=== PATIENT | female | born 1975 | race African-American/Black ===

== ENCOUNTER 2024-11-25 16:35 | Inpatient (IN) | payer BC ==
[2024-11-25 19:04] LABS: BASO % 0.7 % (0-2.0); EOS % 0.7 % (0-4.5); HEMATOCRIT 29.8 % (32.4-45.2); HEMOGLOBIN 9.7 GM/dL (10.7-15.3); LYMPH % 12.5 % (8-40); MCH 23.4 pg (25.7-33.7); MCHC 32.5 g/dl (32.0-36.0); MEAN CELL VOLUME 72.3 fl (80-96); MEAN PLT VOLUME 8.6 fl (7.5-11.1); MONO % 4.8 % (3.8-10.2); NEUT % 81.3 % (42.8-82.8); PLATELET COUNT 308 10^3/uL (134-434); RBC 4.13 M/mm3 (3.60-5.2); RDW 31.5 % (11.6-15.6); WHITE BLOOD COUNT 9.2 K/mm3 (4.0-10.0)
[2024-11-25 19:10] LABS: INR 1.05 (0.83-1.09); PROTHROMBIN TIME (PATIENT) 11.5 SEC (9.7-13.0)
[2024-11-25 19:25] LABS: POTASSIUM 3.8 mmol/L (3.5-5.1)
[2024-11-25 19:28] LABS: ALBUMIN 3.6 g/dl (3.4-5.0); BLOOD UREA NITROGEN 10.4 mg/dL (7-18); CALCIUM 9.3 mg/dL (8.5-10.1)
[2024-11-25 19:31] LABS: CREATININE 0.9 mg/dL (0.55-1.3)
[2024-11-25 19:33] LABS: BILIRUBIN,TOTAL 0.4 mg/dL (0.2-1); TOT PROT 7.6 g/dl (6.4-8.2)
[2024-11-26 00:09] VITALS: BMI 27.3
[2024-11-26] MEDS: ELECTROLYTE-148 SOLN 1,000 ML IV SCH (00:10)
[2024-11-26] MEDS ORDERED: LIDOCAINE HCL/PF 2% SDV 5ML VIAL ONE (08:52)
[2024-11-26] MEDS ORDERED: PROPOFOL 20 ML ONE (08:53)
[2024-11-26] MEDS ORDERED: MIDAZOLAM HCL 2 MG/2 ML SINGLE DOSE VIAL ONE (08:53)
[2024-11-26] MEDS ORDERED: SUCCINYLCHOLINE CHLORIDE 200 MG/10 ML SYRINGE ONE (08:53)
[2024-11-26] MEDS ORDERED: ROCURONIUM BROMIDE 50 MG/5 ML SYRINGE ONE (08:53)
[2024-11-26] MEDS: ceFAZolin SODIUM 1 GM VIAL IVPB ONE ×2 (09:19)
[2024-11-26] MEDS ORDERED: DEXAMETHASONE SOD PHOSPHATE 4 MG/1 ML VIAL ONE (09:33)
[2024-11-26] MEDS ORDERED: ceFAZolin SODIUM 1 GM VIAL ONE (09:33)
[2024-11-26] MEDS ORDERED: PROMETHAZINE HCL 25 MG/1 ML VIAL IVPB PRN ×2 (09:56→13:00)
[2024-11-26] MEDS ORDERED: ONDANSETRON 4 MG/2 ML VIAL IVPUSH PRN (09:56)
[2024-11-26] MEDS ORDERED: LACTATED RINGERS SOLUTION 1,000 ML IV SCH (10:00)
[2024-11-26] MEDS ORDERED: ONDANSETRON 4 MG/2 ML VIAL ONE (10:39)
[2024-11-26] MEDS ORDERED: KETOROLAC TROMETHAMINE 30 MG/1 ML VIAL ONE (10:39)
[2024-11-26] MEDS ORDERED: GLYCOPYRROLATE 0.2 MG/1 ML VIAL ONE (11:01)
[2024-11-26] MEDS ORDERED: NEOSTIGMINE METHYLSULFATE 0.5 MG/1 ML - 10 ML MDV ONE (11:01)
[2024-11-26] MEDS ORDERED: ACETAMINOPHEN INJECTION 100 ML ONE (11:29)
[2024-11-26] MEDS: ACETAMINOPHEN 1000 MG/100 ML BAG IVPB ONE (11:34)
[2024-11-26 12:32] LABS: HEMATOCRIT 29.5 % (32.4-45.2); HEMOGLOBIN 9.2 GM/dL (10.7-15.3); MCH 23.1 pg (25.7-33.7); MCHC 31.2 g/dl (32.0-36.0); MEAN CELL VOLUME 73.9 fl (80-96); MEAN PLT VOLUME 8.1 fl (7.5-11.1); PLATELET COUNT 248 10^3/uL (134-434); RBC 3.99 M/mm3 (3.60-5.2); RDW 29.1 % (11.6-15.6); WHITE BLOOD COUNT 14.7 K/mm3 (4.0-10.0)
[2024-11-26] MEDS ORDERED: BISACODYL 5 MG TABLET.DR (FP) PO PRN (12:59)
[2024-11-26] MEDS ORDERED: SIMETHICONE 80 MG TAB.CHEW (FP) PO PRN (12:59)
[2024-11-26] MEDS ORDERED: DOCUSATE SODIUM 100 MG CAPSULE (FP) PO PRN (12:59)
[2024-11-26] MEDS: LACTATED RINGERS SOLUTION 1,000 ML IV SCH (13:13)
[2024-11-26] MEDS ORDERED: HYDROmorphone HCL CARPU-JECT 2 MG/1 ML DISP.SYRIN ONE (13:20)
[2024-11-26] MEDS: HYDROmorphone HCl 2 MG/ML VIAL IVPUSH PRN (13:20)
[2024-11-26] MEDS: CEFAZOLIN 1 GM/D5W 1 GM/50 ML BAG IVPB SCH (16:29)
[2024-11-26] MEDS: oxyCODONE HCL 5 MG TABLET PO PRN (16:37)
[2024-11-26] MEDS: ACETAMINOPHEN 1000 MG/100 ML BAG IVPB SCH (18:55)
[2024-11-26] MEDS: IBUPROFEN 800 MG/8 ML IJ IVPB SCH (20:17)
[2024-11-26 20:39] LABS: HEMATOCRIT 26.8 % (32.4-45.2); HEMOGLOBIN 8.4 GM/dL (10.7-15.3); MCH 22.8 pg (25.7-33.7); MCHC 31.5 g/dl (32.0-36.0); MEAN CELL VOLUME 72.5 fl (80-96); MEAN PLT VOLUME 8.3 fl (7.5-11.1); PLATELET COUNT 254 10^3/uL (134-434); RDW 28.6 % (11.6-15.6); WHITE BLOOD COUNT 8.6 K/mm3 (4.0-10.0)
[2024-11-26 21:04] LABS: POTASSIUM 4.3 mmol/L (3.5-5.1)
[2024-11-26 21:06] LABS: BLOOD UREA NITROGEN 6.5 mg/dL (7-18); CALCIUM 8.3 mg/dL (8.5-10.1)
[2024-11-26 21:10] LABS: CREATININE 0.6 mg/dL (0.55-1.3)
[2024-11-27 09:03] LABS: HEMATOCRIT 26.9 % (32.4-45.2); HEMOGLOBIN 8.5 GM/dL (10.7-15.3); MCH 23.3 pg (25.7-33.7); MCHC 31.7 g/dl (32.0-36.0); MEAN CELL VOLUME 73.6 fl (80-96); MEAN PLT VOLUME 8.4 fl (7.5-11.1); PLATELET COUNT 257 10^3/uL (134-434); RBC 3.65 M/mm3 (3.60-5.2); RDW 28.6 % (11.6-15.6); WHITE BLOOD COUNT 8.9 K/mm3 (4.0-10.0)
[2024-11-27 09:23] LABS: CALCIUM 8.5 mg/dL (8.5-10.1)
[2024-11-27 09:24] LABS: BLOOD UREA NITROGEN 7.4 mg/dL (7-18)
[2024-11-27 09:26] LABS: CREATININE 0.6 mg/dL (0.55-1.3)
[2024-11-27] MEDS: IBUPROFEN 600 MG TABLET (FP) PO SCH (10:35)
[2024-11-27] MEDS: oxyCODONE HCL 5 MG TABLET PO PRN (10:43)
[2024-11-27] MEDS: ENOXAPARIN NA (PORCINE) 40 MG/0.4 ML DISP.SYRIN SQ SCH (10:44)
[2024-11-27] MEDS: ACETAMINOPHEN 500 MG TABLET (FP) PO SCH (13:09)
[2024-11-28 14:18] VITALS: BP 123/85; PULSE 76; RESP 17; TEMP 98.2
== END 2024-11-28 12:08 | disposition home or self-care (01) | DRG 743 ==
LOC: JER 16:35 → JERBED 18:25 → J8W 20:13
PROVIDERS: ADMIT Obstetrics & Gynecology; ATTEND Obstetrics & Gynecology
PROC: 0UT90ZZ Resection of Uterus, Open Approach (ICD-10-PCS; principal; 2024-11-26 08:30)
PROC: 0UT70ZZ Resection of Bilateral Fallopian Tubes, Open Approach (ICD-10-PCS; 2024-11-26 08:30)
DX: D25.9 Leiomyoma of uterus, unspecified (principal); N92.0 Excessive and frequent menstruation with regular cycle
CPT/HCPCS: 36415; 71046-TC-FY; 80048; 80053; 85025; 85027; 85610; 86850; 86900; 86901; 86922; 88305-TC; 88307-TC; 93005; 93010; 94010; 94760; 99285-25; J0131; P9058